=== PATIENT | male | born 1965 | race Caucasian/White ===

== ENCOUNTER → 2017-03-21 | Outpatient (CLI) | payer BC ==
[~2017-03-21] MED LIST: ALLEGRA; ATACAND; BACITRACIN30 GM; CLINDAMYCIN HC300 MG PO; FISH OIL300 MG PO; FLEXERIL PO; FOLIC ACID1 MG PO; GLUCOSAMINE PO; HYZAAR 50-12.51 TA1 PO; KEFLEX500 MG PO; METHOTREXATE2.5 MG PO; MOBIC PO; PERCOCET PO; TYLENOL #3 PO; VICODIN 5/500 T1 TAB; VICODIN PO
--- NOTE | ~2017-03-21 | CR17 ---
[facility] A Service of [facility] & [facility] RADIOLOGY TEXT RESULTS PATIENT: ISAI CORCORAN JR LOCATION: [facility] : 61 UNIT #: [id number] AGE: [address]: Donn Saldana MD SEX: M ORDER DR: [id number] [facility]. [place], [place] [address] [id number] O MR#: [id number] Acc #: [id number] NAME: ISAI CORCORAN : 1965 SEX: M STUDY DATE/TIME: 03/21/2017 14:48 UNIT: [facility] ROOM: STUDY DESCRIPTION: CR Ankle 2 Views Lt Attending Physician: Donn Saldana M.D. Referring Physician: Donn Saldana M.D. Ordering Physician: Donn Saldana M.D. Primary Care Physician: Donn Saldana M.D. MEDICAL IMAGING REPORT This report is preliminary unless electronic signature is present EXAM 2 views of the left ankle. COMPARISON None INDICATIONS 51-year-old male with left ankle pain for 3 months. No known injury. FINDINGS There is a large osteophyte formation at the plantar fascial attachment of the calcaneus. There is an os trigonum, a normal anatomic variant. This measures up to 1.1 cm. Bones are anatomically aligned. No evidence of acute fracture. Mild osteophyte formation at the anterior distal tibia. IMPRESSION 1. No acute fracture or dislocation of the left ankle. There is severe enthesopathy at the plantar fascial attachment of the calcaneus. 2. Mild osteophyte formation of the anterior distal tibia. 3. 1.1-cm os trigonum, a normal anatomic variant. Correlation with the site of pain is recommended to exclude associated symptoms. Dictated by... Francisco Coronado M.D. THIS IS AN ELECTRONICALLY VERIFIED REPORT Francisco Coronado M.D. at 03/23/2017 8:55 AM Viraj TD: 03/22/2017 15:58 JOB #: [id number] [facility] A Service of [facility] & [facility] RADIOLOGY TEXT RESULTS PATIENT: ISAI CORCORAN JR LOCATION: [facility] #: [id number] : 61 UNIT #: [id number] AGE: [address]: Donn Saldana MD SEX: M ORDER DR: MEDICAL IMAGING REPORT Page 1 of 1 COPY
--- NOTE | ~2017-03-21 | CR172 ---
[facility] A Service of [facility] & [facility] RADIOLOGY TEXT RESULTS PATIENT: ISAI CORCORAN JR LOCATION: [facility] : 61 UNIT #: [id number] AGE: [address]: Donn Saldana MD SEX: M ORDER DR: [id number] [facility] [address] [facility]. [place], [place] [address] [id number] O MR#: [id number] Acc #: [id number] NAME: ISAI CORCORAN : 1965 SEX: M STUDY DATE/TIME: 03/21/2017 14:47 UNIT: [facility] ROOM: STUDY DESCRIPTION: CR Knee 3 Views Lt Attending Physician: Donn Saldana M.D. Referring Physician: Donn Saldana M.D. Ordering Physician: Donn Saldana M.D. Primary Care Physician: Donn Saldana M.D. MEDICAL IMAGING REPORT This report is preliminary unless electronic signature is present EXAM Left knee, 3 views COMPARISON None INDICATIONS 48-year-old male with left knee pain for 3 weeks. No known injury. FINDINGS There is minimal femoral notch osteophyte formation. There is no suprapatellar effusion. Bones are anatomically aligned. No evidence of acute fracture. Minimal osteophyte formation at the lateral margin of the patella. IMPRESSION Minimal osteophyte formation at the patella and femoral notch, perhaps clinically insignificant. Otherwise normal exam. Dictated by... Francisco Coronado M.D. THIS IS AN ELECTRONICALLY VERIFIED REPORT Francisco Coronado M.D. at 03/23/2017 8:54 AM MT/[email or web address] TD: 03/23/2017 01:11 JOB #: [id number] MEDICAL IMAGING REPORT Page 1 of 1 COPY
--- NOTE | ~2017-03-21 | CR150 ---
[facility] A Service of [facility] & [facility] RADIOLOGY TEXT RESULTS PATIENT: ISAI CORCORAN JR LOCATION: [facility] : 61 UNIT #: [id number] AGE: [address]: Donn Sadlana MD SEX: M ORDER DR: [id number] [facility] [address] [place], [place] [address] [id number] O MR#: [id number] Acc #: [id number] NAME: ISAI CORCORAN : 1965 SEX: M STUDY DATE/TIME: 03/21/2017 14:47 UNIT: [facility] ROOM: STUDY DESCRIPTION: CR Hip Min 2 Views Lt Attending Physician: Donn Saldana M.D. Referring Physician: Donn Saldana M.D. Ordering Physician: Donn Saldana M.D. Primary Care Physician: Donn Saldana M.D. MEDICAL IMAGING REPORT This report is preliminary unless electronic signature is present EXAM Left hip, 2 views. COMPARISON None. INDICATIONS 51-year-old male with left hip pain for 3 months. No known injury. FINDINGS Degenerative endplate change and disc height loss is noted at L4-L5. There are marginal osteophytes of the L4 and L5 vertebral bodies. Left hip is anatomically aligned. No evidence of acute fracture. No significant degenerative change of the left hip. IMPRESSION 1. No acute fracture or dislocation of the left hip. No significant degenerative change. 2. Degenerative disc and endplate change at L4-L5 with marginal osteophytes seen at these vertebral bodies. Dictated by... Francisco Coronado M.D. THIS IS AN ELECTRONICALLY VERIFIED REPORT Francisco Coronado M.D. at 03/23/2017 8:54 AM MT/jonathan TD: 03/22/2017 14:32 JOB #: [id number] MEDICAL IMAGING REPORT Page 1 of 1 COPY
== END | disposition home or self-care (01) ==
LOC: CRAD 14:32
DX: M25.552 Pain in left hip (principal); M25.562 Pain in left knee; M25.572 Pain in left ankle and joints of left foot; M51.36 Other intervertebral disc degeneration, lumbar region; M25.78 Osteophyte, vertebrae; M77.52 Other enthesopathy of left foot and ankle; M25.762 Osteophyte, left knee
CPT/HCPCS: 73502; 73562; 73600